=== PATIENT | female | born 1965 | race Caucasian/White ===

== ENCOUNTER 2019-10-08 11:04 | Inpatient (IN) | payer OTHER, SELFPAY ==
[2019-10-08 11:35] LABS: Bacteria/HPF None Seen HPF (None Seen); Bilirubin Negative (Negative); Blood, Urine 3+ (Negative); Clarity Clear (Clear); Glucose, Urine (Dipstick) Greater than 1000 mg/dL (Negative); Ketone, Urine 150 mg/dL (Negative); Leukocyte Negative Leu/uL (Negative); Nitrite Negative (Negative); Protein, Urine (Dipstick) Negative (Neg-Trace); RBC/HPF Greater than 50 HPF (0-3); Specific Gravity, Urine 1.029 (1.002-1.036); Urobilinogen Normal mg/dL (Less than 2)
[2019-10-08] MEDS ORDERED: Iopamidol-370 76% 500 ML 1 ML ONE (11:51)
[2019-10-08 12:09] LABS: #Eosinphils 0.1 thou/uL (0.0-0.7); #Lymphocytes 1.3 thou/uL (1.20-3.40); #Monocytes 0.5 thou/uL (0.11-0.59); #Neutrophils 9.4 thou/uL (1.40-6.50); %Basophils 0.4 % (0.0-1.0); %Eosinophils 0.5 % (0.0-10.0); %Lymphocytes 11.6 % (21.0-51.0); %Monocytes 4.2 % (0.0-10.0); %Neutrophils 83.4 % (42.0-75.0); Hemoglobin 15.1 g/dL (12.0-16.0); Mean Corpuscular HGB CONC 32.6 g/dL (32.0-36.0); Mean Corpuscular Hemoglobin 32.4 pg (27.0-31.0); Mean Corpuscular Volume 99.4 fL (78.0-98.0); Mean Platelet Volume 7.7 fL (7.4-10.4); Platelet Count 354 thou/uL (130-400); Red Blood Cell (RBC) Count 4.65 mill/uL (4.20-5.40); White Blood Cell (WBC) Count 11.2 thou/uL (4.8-10.8)
[2019-10-08 12:33] LABS: ALT (SGPT) 13 U/L (8-55); AST (SGOT) 11 U/L (5-34); Albumin 3.7 g/dL (3.5-5.0); Alkaline Phosphatase 128 U/L (40-110); Anion Gap 28 mmol/L (10-20); BUN (Urea Nitrogen) 20 mg/dL (9.8-20.1); Bilirubin, Total 0.7 mg/dL (0.2-1.2); Calc. Creatinine Clearance 0 mL/min (70-130); Carbon Dioxide 10 mmol/L (22-29); Chloride 92 mmol/L (98-107); Estimated GFR-MDRD 46; Globulin 3.3 g/dL (2.4-3.5); Potassium 4.8 mmol/L (3.5-5.1); Sodium 125 mmol/L (136-145)
[2019-10-08 12:43] LABS: Glucose 764 mg/dL (70-105)
[2019-10-08 13:34] LABS: Pregnancy Test - Urine (BHCG) Negative (Negative); Pregu Control Background? CLEAR/WHITE (CLR/WHITE); Pregu Control Bar Appear? YES (CONTROL BAR); Specific Gravity 1.029 (1.002-1.036)
[2019-10-08 13:41] LABS: Base Excess-Venous -12.4 mmol/L (-2.0 to 3.0); Bicarbonate (HCO3v) 13.3 mmol/L (22.0-28.0); CO2 Tension (PvCO2) 30.1 mmHg (40.0-50.0); Calcium, Ionized 1.13 mmol/L (See Comments:); Chloride 98 mmol/L (98-107); Hemoglobin - Calc 17.1 g/dL (12.0-16.0); Potassium 5.3 mmol/L (3.5-5.1); Sodium 125 mmol/L (138-145); T. Carbon Dioxide 14.2 mmol/L (22.0-28.0); vO2 Saturation-calc 80.8 % (60.0-85.0)
[2019-10-08] MEDS ORDERED: Insulin Regular 100 units/100 ml in NS IVPB SCH (14:00)
--- NOTE | 2019-10-08 14:26 | CT ---
CT Abdomen Pelvis W Con History: Lower abdominal pain Comparison: None. Findings: Lung bases are clear. No pericardial effusion. Liver, gallbladder, spleen are unremarkable. Normal proximal small bowel rotation. Bilateral symmetric Andrea hypertrophy along the anterior abdominal albarran. Mildly congested omentum-containing umbilical hernia with a relatively small neck measuring 7 mm in c raniocaudal dimension and 11 mm in transverse dimension. No bowel within the hernia. No free intraperitoneal gas or fluid. The appendix is visualized and is normal. Old compression deformities of L2 and L4. Impression: 1. Omentum containing umbilical hernia with mild vascular congestion. No free fluid within the hernia sac. This can be a source of patient's pain. 2. Normal appendix. 3. Bilateral symmetric right and left anterior abdominal wall lipohypertrophy.
[2019-10-08] MEDS ORDERED: Insulin Regular 300 UNITS/3 ML VIAL ONE (14:29)
[2019-10-08] MEDS ORDERED: Morphine 4 MG/ML VIAL ONE (14:29)
[2019-10-08] MEDS ORDERED: Dextrose 5 %-0.45 % NaCl 1,000 ML IV PRN (14:43)
[2019-10-08] MEDS ORDERED: NS 0.9% w/ 20 MEQ KCL 1,000 ML IV PRN ×2 (14:43)
[2019-10-08] MEDS ORDERED: Electrolyte Replacement Protoc 1 EACH EACH IVPB PRN (14:43)
[2019-10-08] MEDS ORDERED: Sodium Chloride 0.9% 1,000 ML IV PRN ×4 (14:43)
[2019-10-08] MEDS ORDERED: D5 1/2 NS w/20 mEq KCL 1,000 ML IV PRN (14:43)
[2019-10-08] MEDS ORDERED: Bisacodyl 5 MG TAB PO PRN (14:44)
[2019-10-08] MEDS ORDERED: Ondansetron PF 4 MG/2 ML Vial IVP PRN (14:44)
[2019-10-08] MEDS ORDERED: HUMULIN R 100 UNITS in Sodium Chloride 0.9% 100 ML IVPB SCH (14:45)
[2019-10-08] MEDS ORDERED: NS 0.9% w/ 40 MEQ KCL 1,000 ML IV SCH (15:00)
[2019-10-08 15:11] LABS: Hemoglobin A1c 12.4 % (4.0-6.0)
[2019-10-08 15:17] LABS: BUN (Urea Nitrogen) 21 mg/dL (9.8-20.1); Calc. Creatinine Clearance 0 mL/min (70-130); Calcium 8.5 mg/dL (7.8-10.44); Chloride 96 mmol/L (98-107); Estimated GFR-MDRD 41; Potassium 5.1 mmol/L (3.5-5.1); Sodium 127 mmol/L (136-145)
[2019-10-08 15:23] LABS: Carbon Dioxide Less than 8 mmol/L (22-29); Glucose 742 mg/dL (70-105)
[2019-10-08 15:27] LABS: Phosphorus 4.2 mg/dL (2.3-4.7)
[2019-10-08] MEDS ORDERED: cefTRIAXone\\ROCEPHIN 2 GM VIAL ONE (15:40)
--- NOTE | 2019-10-08 17:33 | PDOC.HHP ---
Hospitalist HPI - History of Present Illness Abdominal pain History of Present Illness: Patient is a pleasant 54-year-old lady who was seen at [facility] on October 08, 2019. She has diabetes mellitus type 1 and takes Lantus insulin and Novolin insulin. She reports being compliant with her medications, although she does report that she ran out of her other medications approximately a month ago and has not been taking the medications. She moved to this area from the [facility]. She was reportedly being followed at the indigent clinic. She has not established care in this area. Patient reports that yesterday she started having abdominal pain. She describes it as soreness-like sensation, starting in the right lower quadrant, radiating to left lower quadrant, on and off, no known aggravating or relieving factors. She drank some water and vomited once. She presented to the emergency room because of abdominal pain. Her abdominal pain has resolved. In the emergency room, she was found to be in diabetic ketoacidosis. She was referred to hospitalist service for admission. ED Course: BP: 115/63, Pulse: 91, Resp: 18, Temp: 98.3 (Oral), Pain: 5, O2 sat: 98 on ( Room Air), Time: 10/08/2019 19:02. Hospitalist ROS - Review of Systems Constitutional: denies: fever, chills, sweats, weakness, malaise Cardiovascular: denies: chest pain, palpitations, orthopnea, paroxysmal noc. dyspnea, edema, light headedness Gastrointestinal: reports: nausea, vomiting, abdominal pain. denies: diarrhea, constipation, melena, hematochezia Genitourinary: denies: dysuria, frequency, incontinence, hematuria, retention Musculoskeletal: denies: neck pain, shoulder pain, arm pain, back pain, hand pain, leg pain, foot pain Hospitalist History - Past Medical History Cardiac: reports: HTN FOURTH MATE: reports: CVA, Seizure Gastrointestinal: reports: Peptic ulcer disease Endocrine: reports: Diabetes - Past Surgical History Past Surgical History: reports: no pertinent history Other Surgical History: Allergies: To sulfa Home medications: These include Lantus insulin 50 units daily, Novolin R 12 units 3 times a day, Keppra thousand milligrams 2 times a day, aspirin 81 mg daily, lisinopril 20 mg daily, multivitamin daily, vitamin D, levothyroxine 75 mcg daily, atorvastatin 40 mg daily. - Family History Family History: reports: diabetes mellitus - Social History Smoking Status: Never smoker Alcohol: reports: Occassional Drugs: reports: none - Exam General Appearance: awake alert Eye: anicteric sclera ENT: moist mucosa Neck: supple, symmetric, no thyromegaly, no lymphadenopathy Heart: RRR, no gallops, no rubs, normal peripheral pulses Respiratory: CTAB, no wheezes, no rales, no ronchi Gastrointestinal: soft, non-tender, non-distended, normal bowel sounds Skin: no rashes Psychiatric: normal affect, normal behavior, A&O x 3 Hospitalist Results - Labs Result Diagrams: 10/08/19 11:53 10/08/19 18:08 Lab results: WBC 11.2 thou/uL (4.8-10.8) H 10/08/19 11:53 Hgb 15.1 g/dL (12.0-16.0) 10/08/19 11:53 Hct 46.2 % (36.0-47.0) 10/08/19 11:53 MCV 99.4 fL (78.0-98.0) H 10/08/19 11:53 Plt Count 354 thou/uL (130-400) 10/08/19 11:53 Neutrophils % 83.4 % (42.0-75.0) H 10/08/19 11:53 VBG pCO2 30.1 mmHg (40.0-50.0) L 10/08/19 13:39 VBG pO2 51.3 mmHg (35.0-45.0) H 10/08/19 13:39 Sodium 127 mmol/L (136-145) L 10/08/19 14:57 Potassium 5.1 mmol/L (3.5-5.1) 10/08/19 14:57 Chloride 96 mmol/L (98-107) L 10/08/19 14:57 Carbon Dioxide Less than 8 mmol/L (22-29) L* 10/08/19 14:57 BUN 21 mg/dL (9.8-20.1) H 10/08/19 14:57 Creatinine 1.34 mg/dL (0.6-1.1) H 10/08/19 14:57 Glucose 742 mg/dL (70-105) H* 10/08/19 14:57 Lactic Acid 1.4 mmol/L (0.5-2.2) 10/08/19 12:47 Calcium 8.5 mg/dL (7.8-10.44) 10/08/19 14:57 Total Bilirubin 0.7 mg/dL (0.2-1.2) 10/08/19 11:53 AST 11 U/L (5-34) 10/08/19 11:53 ALT 13 U/L (8-55) 10/08/19 11:53 Alkaline Phosphatase 128 U/L (40-110) H 10/08/19 11:53 Serum Total Protein 7.0 g/dL (6.0-8.3) 10/08/19 11:53 Albumin 3.7 g/dL (3.5-5.0) 10/08/19 11:53 Lipase 17 U/L (8-78) 10/08/19 12:47 Urine Ketones 150 mg/dL (Negative) A 10/08/19 11:08 Urine Blood 3+ (Negative) A 10/08/19 11:08 Urine Nitrite Negative (Negative) 10/08/19 11:08 Ur Leukocyte Esterase Negative Yarelis/uL (Negative) 10/08/19 11:08 Urine RBC Greater than 50 HPF (0-3) A 10/08/19 11:08 Urine WBC 7-10 HPF (0-3) A 10/08/19 11:08 Ur Squamous Epith Cells 4-6 HPF (0-3) A 10/08/19 11:08 Urine Bacteria None Seen HPF (None Seen) 10/08/19 11:08 - EKG Interpretation EKG: EKG by my review shows sinus tachycardia, no ST changes to suggest an acute coronary syndrome. - Radiology Interpretation Chest x-ray Status: image reviewed by me Additional Comment: EXAM: Single view of the chest IMPRESSION: No evidence of acute cardiopulmonary disease CT scan - abdomen Additional Comment: CT Abdomen Pelvis W Con Impression: 1. Omentum containing umbilical hernia with mild vascular congestion. No free fluid within the hernia sac. This can be a source of patients pain. 2. Normal appendix. 3. Bilateral symmetric right and left anterior abdominal wall lipohypertrophy. Hospitalist H&P A/P - Plan Plan: #1. Diabetic ketoacidosis: Patient will be admitted to the IM for intravenous fluids and intravenous insulin per DKA protocol. 2. Hypothyroidism: Patient has been noncompliant with Synthroid. Will check TSH. Will continue her on Synthroid home dose. 3. History of stroke: Continue aspirin and statin. 4. Seizures: Continue Keppra 5. Metabolic acidosis: Anion gap metabolic acidosis secondary to diabetic ketoacidosis. Recheck Chem-7. 6. Pseudohyponatremia: Recheck sodium after correcting sugar. 7.. Acute kidney injury: Secondary to dehydration. Recheck creatinine. 8. Hypertension: Resume home medications, monitor vital signs and titrate antihypertensives as needed. Level of risk: High. Level of complexity: High
--- NOTE | 2019-10-08 17:56 | RAD ---
EXAM: Single view of the chest HISTORY: Chest pain COMPARISON: 07/29/2019 FINDINGS: Single view of the chest shows a normal sized cardiomediastinal silhouette. There is no leigh ann dence of consolidation, mass, or pleural effusion. The bones are unremarkable IMPRESSION: No evidence of acute cardiopulmonary disease
[2019-10-08 18:39] LABS: Anion Gap 19 mmol/L (10-20); BUN (Urea Nitrogen) 18 mg/dL (9.8-20.1); Calc. Creatinine Clearance 0 mL/min (70-130); Calcium 7.9 mg/dL (7.8-10.44); Carbon Dioxide 15 mmol/L (22-29); Chloride 108 mmol/L (98-107); Estimated GFR-MDRD 60; Glucose 258 mg/dL (70-105); Potassium 4.8 mmol/L (3.5-5.1); Sodium 137 mmol/L (136-145)
[2019-10-08] MEDS: Atorvastatin Calcium 40 MG TAB PO SCH (21:10)
[2019-10-08] MEDS: levETIRAcetam 500 MG TAB PO SCH (21:10)
[2019-10-08] MEDS: Pantoprazole 40 MG VIAL IVP SCH (21:10)
[2019-10-08 22:25] VITALS: BMI 30.7
[2019-10-08 23:04] LABS: Anion Gap 12 mmol/L (10-20); BUN (Urea Nitrogen) 15 mg/dL (9.8-20.1); Calc. Creatinine Clearance 115 mL/min (70-130); Calcium 7.7 mg/dL (7.8-10.44); Carbon Dioxide 19 mmol/L (22-29); Chloride 108 mmol/L (98-107); Estimated GFR-MDRD 78; Glucose 148 mg/dL (70-105); Potassium 4.6 mmol/L (3.5-5.1); Sodium 134 mmol/L (136-145)
[2019-10-09 04:12] LABS: #Eosinphils 0.1 thou/uL (0.0-0.7); #Lymphocytes 2.5 thou/uL (1.20-3.40); #Monocytes 0.6 thou/uL (0.11-0.59); #Neutrophils 4.7 thou/uL (1.40-6.50); %Basophils 0.1 % (0.0-1.0); %Lymphocytes 31.5 % (21.0-51.0); %Monocytes 7.7 % (0.0-10.0); %Neutrophils 59.7 % (42.0-75.0); Hemoglobin 12.8 g/dL (12.0-16.0); Mean Corpuscular HGB CONC 31.9 g/dL (32.0-36.0); Mean Corpuscular Hemoglobin 30.6 pg (27.0-31.0); Mean Platelet Volume 7.4 fL (7.4-10.4); Platelet Count 351 thou/uL (130-400); Red Blood Cell (RBC) Count 4.18 mill/uL (4.20-5.40); White Blood Cell (WBC) Count 7.9 thou/uL (4.8-10.8)
[2019-10-09 04:20] LABS: Anion Gap 16 mmol/L (10-20); BUN (Urea Nitrogen) 15 mg/dL (9.8-20.1); Calc. Creatinine Clearance 112 mL/min (70-130); Calcium 7.9 mg/dL (7.8-10.44); Carbon Dioxide 15 mmol/L (22-29); Chloride 107 mmol/L (98-107); Estimated GFR-MDRD 76; Glucose 350 mg/dL (70-105); Magnesium 1.9 mg/dL (1.6-2.6); Potassium 4.8 mmol/L (3.5-5.1); Sodium 133 mmol/L (136-145)
[2019-10-09 04:38] LABS: Phosphorus 2.5 mg/dL (2.3-4.7)
[2019-10-09] MEDS ORDERED: Dextrose 5% in Water 1,000 ML IV PRN ×2 (05:00→17:43)
[2019-10-09] MEDS ORDERED: Dextrose 50% Abboject 50 ML SYRINGE IVP PRN (05:00)
[2019-10-09] MEDS: Levothyroxine Sodium 75 MCG TAB PO SCH (06:03)
[2019-10-09] MEDS: Insulin Regular 300 UNITS/3 ML VIAL SC PRN ×2 (06:03→10:34)
[2019-10-09] MEDS ORDERED: Electrolyte Replacement Protocol FS PRN (07:30)
[2019-10-09] MEDS ORDERED: Magnesium 2 GM/50 ML 2 GM in Premix Bag 1 BAG IVPB SCH (07:30)
--- NOTE | 2019-10-09 08:44 | PDOC.HOSPP ---
- Subjective Encounter Date: 10/09/19 Encounter Time: 06:45 Subjective: overnight, gap closed, feeling better and hungry. Endorses diarrhea over the past few days prior to presentation. Has no complaints. Starting feeding, subq insulin, repeating BMP to ensure gap didn't reopen, then transfer to medical - Objective Vital Signs & Weight: Vital Signs (12 hours) Temp 10/09/19 07:21 97.5 F L 10/09/19 03:56 97.6 F Weight Weight 190 lb Most Recent Monitor Data Heart Rate from ECG 90 NIBP 98/47 NIBP BP-Mean 64 Respiration from ECG 22 SpO2 96 I&O: 10/08/19 10/09/19 10/10/19 06:59 06:59 06:59 Intake Total 240 Output Total 400 550 Balance -160 -550 Result Diagrams: 10/09/19 03:30 10/09/19 03:30 Additional Labs: Accuchecks 10/09/19 10/09/19 10/09/19 05:39 04:13 03:09 POC Glucose 400 H 333 H 286 H 10/09/19 10/09/19 10/08/19 01:34 00:07 23:07 POC Glucose 240 H 213 H 161 H 10/08/19 10/08/19 10/08/19 22:17 22:09 21:28 POC Glucose 104 103 102 10/08/19 10/08/19 10/08/19 19:06 18:10 17:07 POC Glucose 192 H 234 H 380 H 10/08/19 16:09 POC Glucose 545 H Hospitalist ROS - Review of Systems Constitutional: denies: chills, sweats Respiratory: denies: cough, dry, shortness of breath Cardiovascular: denies: chest pain, palpitations, orthopnea, paroxysmal noc. dyspnea Gastrointestinal: denies: nausea, vomiting, abdominal pain - Medication Medications: Active Medications Generic Name Dose Route Start Last Admin Trade Name Freq PRN Reason Stop Dose Admin Atorvastatin Calcium 40 mg 10/08/19 21:00 10/08/19 21:10 Lipitor PO 40 mg HS ERIK Administration Potassium Chloride/Dextrose/Sod Cl 1,000 mls @ 250 mls/hr 10/08/19 14:43 03/28 21:10 D5 1/2 Ns W/20 Meq Kcl IV 1,000 mls .Q4H PRN Administration Step 4 of DKA Protocol Protocol Insulin Human Regular 0 units 10/09/19 05:00 10/09/19 06:03 Humulin R SC 10 unit .MODERATE SLIDING SC PRN Administration MODERATE SLIDING SCALE Protocol Levetiracetam 1,000 mg 10/08/19 21:00 10/08/19 21:10 Keppra PO 1,000 mg BID ERIK Administration Levothyroxine Sodium 75 mcg 10/09/19 06:00 10/09/19 06:03 Synthroid PO 75 mcg 0600 ERIK Administration Pantoprazole Sodium 40 mg 10/08/19 21:00 10/08/19 21:10 Protonix IVP 40 mg Q12HR REIK Administration - Exam General Appearance: NAD, awake alert Neck: no JVD Heart: RRR, no murmur, no gallops Respiratory: CTAB, no wheezes, no rales Gastrointestinal: soft, non-tender, non-distended Extremities: no edema Hosp A/P - Plan #DKA -gap closed but this morning, bicarb lower -start diet, transition to subq insulin regimen, repeat BMP, if no reopening of gap transfer to medical floor full code gi ppx no ix dvt ppx lovenox ELOS: 1 night
[2019-10-09] MEDS ORDERED: Aspirin 81 mg Enteric Coated Tablet PO SCH (09:00)
[2019-10-09] MEDS ORDERED: Atorvastatin Calcium 40 MG TAB PO SCH (09:00)
[2019-10-09] MEDS ORDERED: Levothyroxine Sodium 75 MCG TAB PO SCH (09:00)
[2019-10-09] MEDS ORDERED: Non-Formulary Item 1 EACH (Levetiracetam [Keppra] 1,000 MG) PO SCH (09:00)
[2019-10-09] MEDS ORDERED: Lisinopril 20 MG TAB PO SCH (09:00)
[2019-10-09] MEDS: Insulin Glargine 50 UNITS in Pre-Filled Syringe 1 EACH SC SCH (09:51)
[2019-10-09] MEDS: levETIRAcetam 500 MG TAB PO SCH ×2 (09:52→21:00)
[2019-10-09] MEDS: Cholecalciferol 1,000 UNITS (25 MCG) TAB PO SCH (09:52)
[2019-10-09] MEDS: Enoxaparin Sodium 40 MG/0.4 ML SYRINGE SC SCH (09:52)
[2019-10-09] MEDS: Multivitamin W/ Minerals 1 TAB PO SCH (09:53)
[2019-10-09] MEDS: Pantoprazole 40 MG VIAL IVP SCH ×2 (09:53→21:01)
[2019-10-09] MEDS: Aspirin 81 mg Enteric Coated Tablet PO SCH (09:53)
[2019-10-09] MEDS: HumaLOG 300 UNITS/3 ML VIAL SC SCH ×5 (09:54→16:47)
[2019-10-09] MEDS: Acetaminophen 325 MG TAB PO PRN (10:07)
[2019-10-09 11:39] LABS: Anion Gap 18 mmol/L (10-20); BUN (Urea Nitrogen) 17 mg/dL (9.8-20.1); Calc. Creatinine Clearance 83 mL/min (70-130); Carbon Dioxide 11 mmol/L (22-29); Chloride 104 mmol/L (98-107); Estimated GFR-MDRD 54; Glucose 497 mg/dL (70-105); Potassium 4.9 mmol/L (3.5-5.1); Sodium 128 mmol/L (136-145)
[2019-10-09 15:00] LABS: SARS-CoV-2 MS2 Positive; SARS-CoV-2 N Gene Negative; SARS-CoV-2 S Gene Negative; SARS-CoV-2 by NAA Not Detected (NotDetected); SARS-CoV-2 orf1ab Negative
[2019-10-09 15:57] LABS: Anion Gap 13 mmol/L (10-20); BUN (Urea Nitrogen) 17 mg/dL (9.8-20.1); Calc. Creatinine Clearance 89 mL/min (70-130); Calcium 8.4 mg/dL (7.8-10.44); Carbon Dioxide 17 mmol/L (22-29); Chloride 107 mmol/L (98-107); Estimated GFR-MDRD 59; Glucose 125 mg/dL (70-105); Sodium 132 mmol/L (136-145)
[2019-10-09] MEDS: Sodium Chloride 0.9% 1,000 ML IV SCH (16:47)
[2019-10-09] MEDS ORDERED: Dextrose 50% Abboject 50 ML SYRINGE SLOW IVP PRN (17:43)
[2019-10-09] MEDS ORDERED: HumaLOG 300 UNITS/3 ML VIAL SC PRN (17:43)
[2019-10-09] MEDS: Atorvastatin Calcium 40 MG TAB PO SCH (20:58)
[2019-10-10] MEDS: Sodium Chloride 0.9% 1,000 ML IV SCH ×2 (04:30→12:26)
[2019-10-10] MEDS: Levothyroxine Sodium 75 MCG TAB PO SCH (06:08)
[2019-10-10 07:37] LABS: Anion Gap 9 mmol/L (10-20); BUN (Urea Nitrogen) 12 mg/dL (9.8-20.1); Calc. Creatinine Clearance 120 mL/min (70-130); Calcium 7.5 mg/dL (7.8-10.44); Carbon Dioxide 19 mmol/L (22-29); Chloride 110 mmol/L (98-107); Estimated GFR-MDRD 82; Glucose 171 mg/dL (70-105); Magnesium 1.9 mg/dL (1.6-2.6); Potassium 4.4 mmol/L (3.5-5.1); Sodium 134 mmol/L (136-145)
[2019-10-10] MEDS: Aspirin 81 mg Enteric Coated Tablet PO SCH (07:52)
[2019-10-10] MEDS: levETIRAcetam 500 MG TAB PO SCH (07:52)
[2019-10-10] MEDS: Insulin Glargine 50 UNITS in Pre-Filled Syringe 1 EACH SC SCH (07:53)
[2019-10-10] MEDS: Pantoprazole 40 MG VIAL IVP SCH (07:53)
[2019-10-10] MEDS: Enoxaparin Sodium 40 MG/0.4 ML SYRINGE SC SCH (07:53)
[2019-10-10] MEDS: Multivitamin W/ Minerals 1 TAB PO SCH (07:53)
[2019-10-10] MEDS: Cholecalciferol 1,000 UNITS (25 MCG) TAB PO SCH (07:53)
[2019-10-10] MEDS: HumaLOG 300 UNITS/3 ML VIAL SC SCH ×3 (07:55→17:05)
[2019-10-10 10:12] VITALS: BP 123/76; TEMP 97.5
[2019-10-10] MEDS: Acetaminophen 325 MG TAB PO PRN (10:50)
--- NOTE | 2019-10-10 23:47 | DIS ---
DATE OF ADMISSION: 10/08/2019 DATE OF DISCHARGE: 10/10/2019 HOSPITAL COURSE: Ms. Miranda is a 54-year-old female with a medical history of type 1 diabetes, who presented with abdominal pain. She ran out of her diabetic medications for months. She was diagnosed with DKA and was admitted to the [facility]. The gap was closed and the patient was able to eat. Prior to discharge, the patient had an episode of symptomatic hypoglycemia, but after receiving juice, she promptly improved. In the context of her hypoglycemic episodes despite using her home regimen of insulin and the patient's inability to obtain medications due to lack of insurance, a reduced dose of Novolin was prescribed to the patient. The patient was extensively educated regarding the use of Novolin, logging blood glucoses, and following up with primary care physician in order to further adjust her diabetic regimen. PHYSICAL EXAMINATION: VITAL SIGNS: Blood pressure 123/76, pulse 74, respiratory rate 20, and oxygen saturation 98 on room air, temperature 97.5. GENERAL: Sitting comfortably. Awake and alert. HEENT: Normocephalic, atraumatic. No JVD. CARDIAC: Regular rate and rhythm. No murmurs, gallops, or rubs. LUNGS: Clear to auscultation bilaterally. No wheezing, rales, or rhonchi. ABDOMEN: Soft, nontender, nondistended. Normal bowel sounds. PSYCHIATRIC: Proper mood and affect. Alert and oriented x3. MEDICATION LIST: New Medication: Novolin 70/30, 25 units with breakfast and with dinner. Continued medications: 1. Levothyroxine. 2. Vitamin D. 3. . 4. Lisinopril. 5. Keppra. 6. Aspirin. Discontinued medications: Novolin R and insulin glargine because the patient cannot afford these medications. Job ID: [id number]
== END 2019-10-10 18:57 | disposition home or self-care (01) | DRG 638 ==
LOC: ERS 11:04 → IMCU/EMU 14:58 → T4-A 10-09 19:20
PROVIDERS: ADMIT Internal Medicine; ATTEND Internal Medicine
DX: E10.10 Type 1 diabetes mellitus with ketoacidosis without coma (principal); N17.9 Acute kidney failure, unspecified; E03.9 Hypothyroidism, unspecified; G40.909 Epilepsy, unspecified, not intractable, without status epilepticus; I10 Essential (primary) hypertension; Z79.4 Long term (current) use of insulin; Z88.2 Allergy status to sulfonamides; Z87.11 Personal history of peptic ulcer disease; Z86.73 Personal history of transient ischemic attack (TIA), and cerebral infarction without residual deficits
CPT/HCPCS: 36415; 36416; 71045; 74177; 80048; 80053; 81003; 81015; 81025; 82010; 82330; 82803; 83036; 83605; 83690; 83735; 83930; 84100; 84443; 85025; 87086; 87635; 93005; 96361; 96365; 96366; 96368; 96375; 96376; C9113; J0696; J1650; J1815; J2270; J2405; J3475; J3480; J3490; Q9967; U0003